=== PATIENT | male | born 1945 | race Caucasian/White ===

== ENCOUNTER 2023-06-24 09:13 | Emergency (ER) | payer OTHER, SELFPAY ==
[2023-06-24 09:22] VITALS: BP 110/76
[2023-06-24 09:39] VITALS: BP 143/73
[2023-06-24 09:49] VITALS: BMI 27.0
[2023-06-24 10:00] VITALS: BP 139/71
[2023-06-24 10:06] LABS: % Basophils 0.7 % (0-2); % Immature Granulocytes 0.3 % (0-0.5); % Lymphocytes 22.7 % (20.5-51.1); % Monocytes 8.9 % (1.7-9.3); % Neutrophils 59.4 % (42.2-75.2); Absolute Eosinophils 0.5 10^3/uL (0-0.7); Absolute Lymphocytes 1.3 10^3/uL (1.2-3.4); Absolute Monocytes 0.5 10^3/uL (0.1-0.6); Absolute Neutrophils 3.4 10^3/uL (1.4-6.5); Hematocrit 36.7 % (39.0-52.0); Hemoglobin 13.1 g/dL (13.0-18.0); Mean Corp Hgb Conc. 35.7 g/dL (33.0-37.0); Mean Corpuscular Volume 89.7 fL (80.0-94.0); Mean Platelet Volume 9.1 fL (7.4-10.4); Nucleated Red Blood Cells % 0 % (-); Platelet Count 244 10^3/uL (130-400); Red Blood Cell Count 4.09 10^6/uL (4.70-6.10); Red Cell Dist. Width 12.5 % (11.5-14.5); White Blood Cell Count 5.8 10^3/uL (4.8-10.8)
[2023-06-24 10:15] LABS: ALT (SGPT) 19 U/L (0-50); AST (SGOT) 30 U/L (17-59); Albumin 3.7 g/dl (3.5-5.0); Alkaline Phosphatase 70 U/L (38-126); Blood Urea Nitrogen 23 mg/dl (9-20); Calcium 10.2 mg/dl (8.4-10.2); Carbon Dioxide 23 mmol/L (22-30); Chloride 106 mmol/L (98-107); Estimated Creatinine Clearance 57 ml/min; Glucose 142 mg/dl (70-99); Potassium 4.6 mmol/L (3.5-5.1); Sodium 140 mmol/L (135-145); Total Bilirubin 0.6 mg/dl (0.2-1.3); Total Protein 6.4 g/dl (6.3-8.2); eGFR > 60.00
[2023-06-24 11:00] VITALS: BP 140/74
--- NOTE | 2023-06-24 11:07 | ED.GENMED ---
History of Present Illness
General
Chief Complaint: Headache
Source: patient
Time Seen by Provider: 06/24/23 10:48
Travel History
Have you had any contact with someone who has COVID-19?: No
Do you have any symptoms of coronavirus? Fever > 100 degrees, chills, cough, shortness of breath, sore throat, loss of taste or smell, muscle aches, or headache?: No
History of Present Illness
History of Present Illness:
78-year-old male presents to the emergency room complaining of pain left head. Pain originates behind his left ear and radiates towards the front. It occurs in very severe jolts that last for a second or 2. In between he does not have significant
pain. He denies any weakness, numbness. Patient denies any nausea or vomiting. Symptoms began 3 to 4 days ago. They occur throughout the day and throughout the night. Some mild improvement with ibuprofen.
Past History
Past History
ED Past Medical History: GERD, Hypercholesterolemia and Other (BPH)
ED Past Surgical History: None
Social History
Tobacco: Smoker
Alcohol: None
Personal:
Phy Exam
Physical Exam
Physical Exam:
General: Awake, Alert, Oriented X3. No acute distress.
Vitals: unremarkable
Head: Atraumatic
Eyes: Pupils equal, EOMI
Throat: Airway intact, no exudates
Neck: Trachea midline
Lungs: Clear and equal b/l
Heart: Regular rate, no murmurs
Abd: Soft, Nontender, No pulsatile mass
Neuro: Cranial nerves intact, muscle strength equal bilaterally, cerebellar exam normal
Skin: Warm, dry, no rash
Extremities: pulses equal b/l, no edema
Course
Orders/Labs/Results
Orders:
Orders
06/24/23 09:57
C-Reactive Protein Urgent
Comment: ADD ON
CMP [Comprehensive Metabolic Panel] Urgent
Complete Blood Count/With Diff Urgent
Erythrocyte Sed Rate Urgent
Comment: ADD ON
06/24/23 11:07
Add On- LAB Urgent
Tests Added?: CRP, sed rate
CT Head W/o Iv Contrast Urgent
Comment:
Reason For Exam: left sided headache
06/24/23 13:04
Carbamazepine [Tegretol] 200 mg PO NOW STA
Abnormal Lab Results
06/24/23
09:57
RBC 4.09 L 10^6/uL
(4.70-6.10)
Hct 36.7 L %
(39.0-52.0)
MCH 32.0 H pg
(27.0-31.0)
Eosinophils % 8.0 H %
(0-6)
BUN 23 H mg/dl
(9-20)
Glucose 142 H mg/dl
(70-99)
06/24/23 09:57
06/24/23 09:57
Vital Signs
Initial and Last Documented VS:
Initial Vital Signs
Temp Pulse Resp BP Pulse Ox
98.0 F 96 16 110/76 98
06/24/23 09:22 06/24/23 09:22 06/24/23 09:22 06/24/23 09:22 06/24/23 09:22
Last Documented Vital Signs
Temp Pulse Resp BP Pulse Ox
98.0 F 77 11 142/96 98
06/24/23 09:22 06/24/23 13:15 06/24/23 13:15 06/24/23 13:09 06/24/23 13:15
MDM/Problems Addressed
Differential Diagnosis Includes:
Trigeminal neuralgia, giant cell arteritis, mass lesion
MDM/Problems Addressed:
Patient presents with sharp episodic jolts of pain to the left face with a tic as he describes it of his facial muscles. CT does not show any acute structural abnormalities. Labs are unremarkable including a CRP and sed rate. Suspect trigeminal
neuralgia. Will start Tegretol 200 mg twice a day. Follow-up with his primary care provider as well as neurology.
*Radiology
Radiology exam reviewed: radiology read reviewed
*Pulse Oximetry
Patient hypoxic: no
*Critical Care Note
Total Time (30-74mins, 75-104mins- exclusive of procedures): Not Applicable
ED Attending Note
-
Portions of this chart may have been created with voice recognition software.� Occasional wrong word or��sound alike� substitutions may have occurred due to the inherent limitations of voice recognition software.
Discharge Plan
Departure
Patient Disposition: Home (Routine Discharge)
Date of Disposition: 06/24/23
Time of Disposition: 13:06
Patient with high blood pressure during this ER visit?: No
Condition: Good
Discharge Problem:
Trigeminal neuralgia of left side of face
Instructions: Trigeminal neuralgia
Prescriptions:
New
carbamazepine [Tegretol] 200 mg tablet
200 mg PO BID Qty: 60 0RF
No Action
atorvastatin 40 mg Tablet
40 mg PO DAILY
aspirin 81 mg Tablet,Delayed Release (Dr/Ec)
81 mg PO DAILY
cyanocobalamin (vitamin B-12) 500 mcg Tablet
500 mcg PO DAILY
Central-Allegra Tablet
1 tab PO DAILY
Referrals:
Zully Cordero PA-C [Family Provider] -
Josefa Jimenez DO [Active] -
Activity Restrictions/Additional Instructions:
Please follow up with your primary care provider and call neurology for the next available appointment.
Interventions
Interventions:
*Risk Screen - Suicide Last Done: 06/24/23 09:49
*General Assessment Last Done: 06/24/23 09:49
*Neglect/Abuse Screening Last Done: 06/24/23 09:49
ED- Fall Risk Assessment Last Done: 06/24/23 09:49
*ED COVID-19 Vaccine History Last Done: 06/24/23 09:22
*Nursing Disposition Last Done: 06/24/23 13:30
ED- Neurological Assessment Last Done: 06/24/23 09:49
Discharge Date and Time
Discharge Date/Time: 06/24/23 13:31
[2023-06-24 12:29] LABS: Erythrocyte Sed Rate 16 mm/hour (0-20)
[2023-06-24 13:09] VITALS: BP 142/96
[2023-06-24] MEDS: TEGRETOL 200 MG PO (13:25)
== END 2023-06-24 13:31 | disposition home or self-care (01) ==
LOC: EMR 09:13
PROVIDERS: EMERGENCY PHYSICIAN Emergency Medicine; FAMILY PHYSICIAN Physician Assistant Medical
DX: R51.9 Headache, unspecified (principal); K21.9 Gastro-esophageal reflux disease without esophagitis; E78.00 Pure hypercholesterolemia, unspecified; N40.0 Benign prostatic hyperplasia without lower urinary tract symptoms; F17.200 Nicotine dependence, unspecified, uncomplicated; G50.0 Trigeminal neuralgia
CPT/HCPCS: 99284; 70450; 80053; 85025; 85652; 86140

== ENCOUNTER → 2024-05-26 09:38 | Outpatient (REF) | payer OTHER, SELFPAY | LOC: RAD 09:38 | PROVIDERS: ATTENDING PHYSICIAN Surgery Vascular Surgery; FAMILY PHYSICIAN Internal Medicine | DX: I77.9 Disorder of arteries and arterioles, unspecified (principal) | CPT/HCPCS: 93922; 93925 ==